=== PATIENT | female | born 1995 | race Caucasian/White ===

== ENCOUNTER 2017-02-14 13:16 | Emergency (ER) | payer SELFPAY ==
[~2017-02-14] VITALS: Ht 165.1 cm; Wt 64.0 kg
[2017-02-14 13:25] VITALS: Ht 165.1 cm; Wt 64.0 kg
[2017-02-14] MEDS ORDERED: ACETAMINOPHEN 325 MG TAB PO ONE (17:00)
--- NOTE | 2017-02-14 17:50 | RADRPT ---
PROCEDURE: CT Head without contrast. CLINICAL INDICATION: Head pain with possible loss of consciousness TECHNIQUE: The study was performed utilizing a GE 64-slice multidetector CT scanner. Direct spiral axial CT images of the brain were obtained from the vertex to the skull base without contrast. Cor onal and sagittal reformat images are provided. The CTDI vol is 36.04 mGy and the DLP is 711.14 mGy -cm. The images were reviewed on a PACS workstation. COMPARISON: No prior studies are available for comparison. FINDINGS: The ventricles and cortical sulci are within normal limits. The chowdhury-white matter differentiation i s maintained. No intra or extra-axial fluid collection or mass effect or shift in the midline struc tures is seen. The visualized paranasal sinuses, mastoid air cells, orbits, and calvarium are unrem arkable. Mild to moderate right parietal scalp soft tissue swelling is seen. IMPRESSION: 1. No acute intracranial pathology. 2. Mild to moderate right parietal scalp soft tissue swelling. RPTAT: HPNM Physician Elizabeth Date Time Electronically viewed and signed by Physician Elizabeth on 02/14/2017 17:50 /
[2017-02-14] MEDS ORDERED: NAPR-260 PO (17:58)
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
[2017-02-14 18:27] VITALS: BP 120/80; PULSE 73; RESP 20; TEMP 98.5
== END 2017-02-14 18:38 | disposition home or self-care (01) ==
LOC: FTE 13:16
DX: S06.0X1A Concussion with loss of consciousness of 30 minutes or less, initial encounter (principal); W01.198A Fall on same level from slipping, tripping and stumbling with subsequent striking against other object, initial encounter; Y92.89 Other specified places as the place of occurrence of the external cause
CPT/HCPCS: 70450